=== PATIENT | female | born 1970 | race Two or more races ===

== ENCOUNTER 2016-09-13 17:40 | Emergency (ER) | payer MEDICAID, OTHER ==
[~2016-09-13] VITALS: Ht 162.6 cm; Wt 59.0 kg
[~2016-09-13 17:40] MED LIST: LORA1TAB82; METO25TA20
[2016-09-13 17:47] VITALS: BP 149/85
[2016-09-13] MEDS ORDERED: LORAZEPAM 1 MG TABLET ONE (18:08)
[2016-09-13] MEDS ORDERED: LORAZEPAM 1 MG TABLET PO ONE (18:30)
== END 2016-09-13 18:19 | disposition home or self-care (01) ==
LOC: ER 17:44
DX: Z76.0 Encounter for issue of repeat prescription (principal); F41.9 Anxiety disorder, unspecified; I10 Essential (primary) hypertension
CPT/HCPCS: A4606; Z7610